=== PATIENT | male | born 1985 | race Caucasian/White ===

== ENCOUNTER 2018-08-02 10:25 | Emergency (ER) | payer SELFPAY ==
[~2018-08-02] VITALS: Ht 180.3 cm; Wt 83.9 kg
--- OUTSIDE RECORDS SUMMARY | 2018-08-02 11:08 | XMS REPORT | Clinical Summary ---
Author Author [facility] Address Unknown Phone Unavailable Care Team Providers Care Filer Repairer Name Role Phone Asked, No Pcp PCP Unavailable Allergies Active Allergy Reactions Severity Noted Date Comments Acetaminophen 07/30/2018 Current Medications Prescription Sig. Disp. Refills Start End Date Status Date hydromorPHONE (DILAUDID) Take 8 mg by mouth every Active 8 MG tablet 4 (four) hours as needed for moderate pain. traMADol (ULTRAM) 50 mg Take 1 tablet (50 mg 9 tablet 0 07/29/20 07/29/20 Active tablet total) by mouth every 8 18 19 (eight) hours as needed for severe pain for up to 9 doses. Active Problems Not on file Encounters Date Type Specialty Care Team Description 07/30/2018 Emergency Emergency Medicine Brennan Rizo Drug-seeking behavior Kyle Cruz MD (Primary Dx) 07/30/2018 Emergency Emergency Medicine Aline Hunt, Has run out of DO medications (Primary Dx) 07/29/2018 Emergency Emergency Medicine Sonny Chi MD Medication refill (Primary Dx); Other chronic pain after 08/01/2017 Social History Tobacco Use Types Packs/Day Years Used Date Never Smoker Smokeless Tobacco: Never Used Tobacco Cessation: Counseling Given: No Alcohol Use Drinks/Week oz/Week Comments No Sex Assigned at Date Recorded Not on file Last Filed Vital Signs Vital Sign Reading Time Taken Blood Pressure 148/80 07/30/2018 7:40 PM [employer] Pulse 75 07/30/2018 7:40 PM [employer] Temperature 36.6 C (97.8 F) 07/30/2018 7:40 PM [employer] Respiratory Rate 18 07/30/2018 7:40 PM [employer] Oxygen Saturation 100% 07/30/2018 7:40 PM [employer] Inhaled Oxygen - - Concentration Weight 83.9 kg (185 lb) 07/30/2018 5:59 PM [employer] Height 180.3 cm (5' 11") 07/30/2018 5:59 PM [employer] Body Mass Index 25.8 07/30/2018 5:59 PM [employer] Plan of Treatment Not on file Results Not on fileafter 08/01/2017
--- OUTSIDE RECORDS SUMMARY | 2018-08-02 11:08 | XMS REPORT ---
Author Author [facility] Address Unknown Phone Unavailable Care Team Providers Care Vascular Radiologist Name Role Phone Unavailable Unavailable Payers Payer Name Policy Type Policy Number Effective Date Expiration Date Problems This patient has no known problems. Allergies, Adverse Reactions, Alerts Allergy Name Allergy Type Status Severity Reaction(s) Onset Date Inactive Date Treating Clinician Comments No Known Allergies DA Active U 2018-08-01 00:00:00 Medications This patient has no known medications.
[2018-08-02] MEDS ORDERED: HYDROMORPHONE HCL 2 MG TAB PO ONE (11:30)
[2018-08-02] MEDS ORDERED: HYDROMORPHONE HCL 2 MG TAB PO SCH (11:45)
== END 2018-08-02 12:24 | disposition left against medical advice (07) ==
LOC: ER 10:25
DX: Z76.0 Encounter for issue of repeat prescription (principal)
CPT/HCPCS: 99282